=== PATIENT | female | born 1945 | race Caucasian/White ===

== ENCOUNTER 2016-10-17 03:18 | Observation (INO) | payer MEDICARE, BC ==
--- NOTE | ~2016-10-17 | HP ---
History And Physical [place] [address] [facility] [place]. [address] NAME: ASIA IZQUIERDO : 47 STATUS : ADM Evgeny PAT#: [id number] AGE: 70 ADM/REG DATE : 10/17/16 MR#: [id number] REPORT SERV DATE: 10/17/16 DICTATED BY: CARLINE WEBB DATE: 10/17/16 REPORT STATUS : Draft TRANSCRIBED BY: ASHLIE DATE: 10/17/16 DATE OF ADMISSION: 10/17/2016 STICK INSERTER: Esa Leon M.D., Ph.D, F.A.C.C. Reportedly has an appointment on 11/12/2016. CHIEF COMPLAINT: Chest pressure. HISTORY OF PRESENT ILLNESS: A very pleasant 70-year-old white female with known history of nonobstructive CAD with 20% lesion in her ostial circumflex identified in 10/2010. The patient reports that on 10/17/2016 around 0100 hours, she awoke with left-sided chest pressure and nausea. She got up, checked her blood pressure several times, it was 160 to 180 over 80. She thought it was indigestion. She did have some nausea and belching. Denies any shortness of breath, diaphoresis, or dizziness. She ate a couple of handfuls of roasted peanuts for dinner that evening and [employer] for late lunch. The patient rated the chest pain as 7/10 at its most intense. At the time of interview in the [facility], she is pain-free. She states, the episode lasted several hours in duration. She reports this was a single event. Over the past five years, she has been healthy and no complaints of chest pain. She denies any exertional component. No stressful argumentative, or confrontational event. The patient reports NH in 2006. No stents or PTCA. Denies history of stroke, DVT, or pulmonary embolus. The patient recently treated for an upper respiratory infection on 09/09/2016. Denies palpitations. No syncopal episodes. Denies PND or orthopnea. PAST MEDICAL HISTORY: 1. Nonobstructive CAD by cath in 10/2010 with 20% ostial left circumflex lesion. 2. Hypertension. 3. Dyslipidemia. 4. AODM. 5. Glaucoma. 6. Sleep apnea, compliant with CPAP. 7. Currently undergoing radiation for skin cancer on her forehead. 8. Positive family history for early CAD. PAST SURGICAL HISTORY: 1. Right trigger thumb. 2. Appendectomy. SOCIAL HISTORY: She is with two children. She does not work outside the home. Does not exercise, although she is very dizzy and active. Denies tobacco, alcohol, or illicits. FAMILY HISTORY: Father in his 60s of a heart attack. Mother with a heart attack at 73, five months later after bypass surgery. Brother with CAD and CABG in his 60s, at 65. Sister with CAD and CABG at 62, remains alive at 70. History And Physical [address] [address] NAME: ASIA IZQUIERDO : 47 STATUS : ADM Evgeny PAT#: [id number] AGE: 70 ADM/REG DATE : 10/17/16 MR#: [id number] REPORT SERV DATE: 10/17/16 DICTATED BY: CARLINE WEBB DATE: 10/17/16 REPORT STATUS : Draft TRANSCRIBED BY: ASHLIE DATE: 10/17/16 REVIEW OF SYSTEMS: A 14-point review of systems was reviewed. Significant for HPI including reports of right leg pain and ache at night. Denies any swelling or tenderness and no calf tenderness on exam. Reports, home blood sugars of 115, otherwise complete review of systems obtained and negative. ALLERGIES: NO KNOWN DRUG ALLERGIES. HOME MEDICATIONS: Aspirin 81 mg daily, calcium 600 mg twice daily, Xalatan drops nightly, lisinopril 2.5 mg daily, metformin 500 mg daily, metoprolol succinate 25 mg daily, Singulair 10 mg nightly, nitroglycerin p.r.n., pravastatin 40 mg nightly, and PreserVision one capsule twice daily. PHYSICAL EXAMINATION: VITAL SIGNS: Bilateral blood pressures on arrival, right 167/70, left 150/67, pulse 55, respirations 16, temperature 97.9, O2 saturation 98% on room air, height 5 feet 0 inches, weight 128 pounds, BMI 25.1. GENERAL: Cooperative, in no apparent distress. HEENT: Pupils 2 mm, sclera nonicteric. Nares patent. Moist mucous membranes. No xanthelasma. NECK: Trachea midline, no thyromegaly. No JVD. No bruits. LYMPH: No cervical lymphadenopathy. No supraclavicular lymphadenopathy. RESPIRATORY: Unlabored respirations. Breath sounds clear bilaterally to posterior auscultation. No wheezes or rhonchi. CARDIOVASCULAR: Regular rate. No murmur, rub or gallop appreciated. EXTREMITIES: Without edema. Pulses 2+ bilaterally. Right lateral lower extremity "ache". ABDOMEN: Soft, nontender, nondistended, normal bowel sounds auscultated throughout. No organomegaly. SKIN: Warm, dry extremities. No pallor, or cyanosis. PSYCHIATRIC: Appropriate affect. Alert, oriented x3. LABORATORY DATA: Troponin less than 0.02 x2. Potassium 4.2, BUN 24, creatinine 0.79, glucose 124, magnesium 2.1. WBC 7.6, hemoglobin 13.4, hematocrit 40.3, platelet count 251,000. EKG, sinus rhythm. Echo, 11/2012: EF 55 to 60, mild MR and TR. MPI, 09/2010: Stalin stage 3, 7: 0, 1 minutes, 10 METS. Chest pain 7/10 with approximately [address]-depression, mild ischemia leading to catheterization. Cath 10/2010 ([facility]): Nonobstructive CAD with 20% ostial left circumflex, EF 60%. ASSESSMENT AND PLAN: 1. Substernal chest pain in a patient with multiple risk factors. The patient has been observed in the CPOU with two sets of cardiac markers negative. EKG stable. Will be held n.p.o. for MPI in the morning. Home if negative study. If anything suggestive of History And Physical [address] [address] NAME: ASIA IZQUIERDO : 47 STATUS : ADM Evgeny PAT#: [id number] AGE: 70 ADM/REG DATE : 10/17/16 MR#: [id number] REPORT SERV DATE: 10/17/16 DICTATED BY: CARLINE WEBB DATE: 10/17/16 REPORT STATUS : Draft TRANSCRIBED BY: ASHLIE DATE: 10/17/16 ischemia, Cardiology referral will be initiated. Otherwise, the patient will be asked to follow up her PCP in one to two weeks and Dr. Leon on 11/12/2016 if that is her scheduled visit. 2. Nonobstructive coronary artery disease. Continue home medications. Hold beta olaf for MPI. 3. Hypertension. Monitor blood pressure. Continue home medications. 4. Dyslipidemia. Continue statin. 5. Adult-onset diabetes mellitus. Hold metformin. Level 1 sliding scale correction. 6. Right leg ache. I will check an ultrasound of her right lower extremity on 10/18/2016 to rule out any abnormality. The patient denies any recent confinement or infirmity and calf is not painful on exam this morning. TAMI/ASHLIE Carline Webb MSN, [employer] / [id number] CC: BLANCO Murray, [employer] Bruno Ramirez D.O. Esa Leon M.D., Ph.D, F.A.C.C.
[~2016-10-17 03:18] MED LIST: ASA5GR PO; CALTRAT600 PO; FISH OIL1200 MG PO; FORTAMET500 MG PO; MEDROXYPR AC5 MG OR; NITROSTAT0.4 MG SL; PLAVIX PO; PRAVACHOL40 MG PO; PREM45 PO; PRIN5 PO; TOPXL25 PO; XALAT OPH; ZETIA PO
[2016-10-17 03:36] LABS: BASOPHILS 0.3 %; BASOPHILS ABSOLUTE 0.02 10/3/uL (0.0-0.16); EOSINOPHILS 1.7 %; EOSINOPHILS ABSOLUTE 0.13 10/3/uL (0.0-0.53); ER CBC TAT 0 Hrs 05 Mins; HEMATOCRIT 40.3 % (36.0-48.0); HEMOGLOBIN 13.4 g/dL (12.0-16.0); IMMATURE GRANULOCYTES 0.1 %; IMMATURE GRANULOCYTES ABSOLUTE 0.01 10/3/uL (0.0-0.11); LYMPHOCYTES 34.2 %; LYMPHOCYTES ABSOLUTE 2.59 10/3/uL (0.67-4.30); MEAN CORPUS HGB CONC 33.3 g/dL (32.0-36.0); MEAN CORPUSCULAR HEMOGLOB 31.4 pg (26.0-34.0); MEAN CORPUSCULAR VOLUME 94.4 fL (80-100); MONOCYTES 10.8 %; MONOCYTES ABSOLUTE 0.82 10/3/uL (0.21-1.20); NEUTROPHILS 52.9 %; NEUTROPHILS ABSOLUTE 4.01 10/3/uL (2.02-8.40); PLATELET COUNT 251 10/3/uL (150-400); RBC DISTRIBUTION WIDTH 12.6 % (12.0-16.0); RED CELL COUNT 4.27 10/6/uL (4.0-5.6); WHITE BLOOD CELLS 7.6 10/3/uL (4.5-10.5)
[2016-10-17 03:40] LABS: MANUAL DIFF NO %
[2016-10-17 03:43] LABS: PARTIAL THROMBO TIME 30.4 SEC (22.5-37.2); PROTIME (NOT ORD) 12.8 SEC (12.0-14.5)
[2016-10-17 03:53] LABS: CALCIUM, SERUM 9.8 MG/DL (8.5-10.4); CHEST PAIN PROFILE TAT 0 Hrs 22 Mins; CHLORIDE, SERUM 104 MMOL/L (96-112); CO2 (CARBON DIOXIDE) 30 MMOL/L (24-34); CREATININE 0.79 MG/DL (0.55-1.02); GFR AFRICAN AMERICAN 89 ML/MIN (>=60); GFR NON AFRICAN AMERICAN 76 ML/MIN (>=60); GLUCOSE, SERUM 124 MG/DL (60-99); POTASSIUM, SERUM 4.2 MMOL/L (3.5-5.3); SODIUM, SERUM 143 MMOL/L (135-148); TROPONIN I <0.02 NG/ML (<0.05)
[2016-10-17 03:54] LABS: BUN (BLOOD UREA NITROGEN) 24 MG/DL (6-23)
[2016-10-17] MEDS ORDERED: ASAB PO (05:06)
[2016-10-17] MEDS ORDERED: PRIN2.5 PO (05:07)
[2016-10-17] MEDS ORDERED: PRESERVISION A1 EAC1 PO (05:09)
[2016-10-17] MEDS ORDERED: SINGULAIR1 PO (05:11)
== END 2016-10-18 12:04 | disposition home or self-care (01) ==
LOC: ER 03:18 → CDU1 04:55
PROVIDERS: Emergency Medicine
DX: R07.2 Precordial pain (principal); I25.10 Atherosclerotic heart disease of native coronary artery without angina pectoris; I10 Essential (primary) hypertension; E78.5 Hyperlipidemia, unspecified; E11.9 Type 2 diabetes mellitus without complications; G47.30 Sleep apnea, unspecified; Z99.81 Dependence on supplemental oxygen; Z90.49 Acquired absence of other specified parts of digestive tract; Z98.890 Other specified postprocedural states; Z79.82 Long term (current) use of aspirin; Z79.899 Other long term (current) drug therapy
CPT/HCPCS: 71020; 78452; 80048; 82962; 83735; 84484; 85025; 85610; 85730; 93005; 93017; 93971; 99285; A9270-GY; A9502; G0378